=== PATIENT | male | born 1995 | race Caucasian/White ===

== ENCOUNTER 2018-09-06 20:27 | Emergency (ER) | payer OTHER ==
[2018-09-06 20:42] VITALS: BP 134/91
--- NOTE | 2018-09-06 21:06 | EDPHY ---
H & P Time Seen by Provider: 09/06/18 20:44 HPI/ROS: CHIEF COMPLAINT: Dog bite left hand HISTORY OF PRESENT ILLNESS: 23-year-old immunocompetent [id number] male with up-to-date tetanus via private vehicle complaining of dog bite puncture wound to his left palmar hand when he was reaching down to pet his coworkers roommates dog which bit him. Occurred shortly prior to arrival. This is a domesticated up-to-date vaccination dog. PRIMARY CARE PROVIDER: REVIEW OF SYSTEMS: 10 systems reviewed and are negative with exception of illness mentioned in the history of present illness PHYSICAL EXAM (Prior to examination, patient consented to physical exam, hands were washed and my usual and customary physical exam procedures followed) 1) GENERAL: Well-developed, well-nourished, alert and oriented. Appears to be in no acute distress. 2) HEAD: Normocephalic 3) HEENT: sclera anicteric 4) LUNGS: Breathing comfortably. 5) SKIN: in between the 3rd 4th MCP palmar aspect there is a non through and through puncture wound measuring 5 mm. 6) MUSCULOSKELETAL: Flexor function intact distally 7) NEUROLOGIC: Full sensation two-point discrimination intact distally Smoking Status: Never smoked Constitutional: Initial Vital Signs Temperature (C) 37.0 C 09/06/18 20:39 Heart Rate 76 09/06/18 20:39 Respiratory Rate 16 09/06/18 20:39 Blood Pressure 134/91 H 09/06/18 20:39 O2 Sat (%) 97 09/06/18 20:39 O2 Delivery Mode Room Air Allergies/Adverse Reactions: No Known Allergies Allergy (Verified 12/03/12 20:03) Home Medications: Medication Instructions Recorded Amoxicillin/Clavulanate Pot 875 mg PO BID #14 tab 09/06/18 [Augmentin 875 mg tab] ED Images - Extremities Hands Front Left/Right: 1 - Puncture wound MDM/Departure - MDM Imaging Results: Imaging Impressions Hand X-Ray 09/06/18 20:45 Impression: There is no acute osseous abnormality, or radiopaque foreign body. Images reviewed myself Medications Given: Discontinued Medications Amoxicillin/Clavulanate Potassium (Augmentin 875mg) 875 mg PO EDNOW ONE PRN Reason: Protocol Stop: 09/06/18 21:08 Last Admin: 09/06/18 21:13 Dose: 875 mg ED Course/Re-evaluation: Patient's wound was anesthetized with 1% plain lidocaine prior to irrigation. His wound is copiously irrigated by ER staff. He currently shows no signs of infection. Will be started on antibiotics in the ER, wound be allowed to heal via secondary intention. He has been given my usual and customary wound precautions and instructions. He feels comfortable being discharged all questions and concerns addressed by myself. Care of patient under supervision of secondary supervising physician Dr Barclay . - Depart Disposition: Home, Routine, Self-Care Clinical Impression: Dog bite of left hand Qualifiers: Encounter type: initial encounter Qualified Code(s): S61.452A - Open bite of left hand, initial encounter Condition: Good Instructions: Amoxicillin/Clavulanate Potassium (By mouth), Animal Bite (ED) Additional Instructions: Return to the ER if you develop redness, swelling, discharge, warmth to the wound, red streaks going up your arm, or any other symptoms that concern you. Prescriptions: Amoxicillin/Clavulanate Pot [Augmentin 875 mg tab] 875 mg PO BID #14 tab Referrals: Elida Reynaga MD [Primary Care Provider] - 2-3 days, call for appt.
[2018-09-06] MEDS ORDERED: AMOXICILLIN/CLAVULANATE POT 875/125 MG TAB PO ONE (21:07)
== END 2018-09-06 21:25 | disposition home or self-care (01) ==
DX: S61.452A Open bite of left hand, initial encounter (principal); W54.0XXA Bitten by dog, initial encounter